=== PATIENT | female | born 1960 | race Caucasian/White ===

== ENCOUNTER 2019-03-02 03:20 | Inpatient (IN) | payer MEDICARE ==
[~2019-03-02] VITALS: Ht 170.2 cm; Wt 51.8 kg
[~2019-03-02 03:20] MED LIST: ALBU90OI INH; ASPI81CH PO; CEPH500 PO; CREON DR 12,001 EACH PO; CYCL10 PO; ERYT.5TO LEFTEYE; FURO20 PO; GABA100; GABA100 PO; HYDACE5 PO; INHALER; K-Dur10 MEQ; LATANOPROST2.5 ML; LATANOPROST2.5 ML OP; LEVSOD100 PO; LEVSOD25 PO; LISI20 PO; LISI5 PO; Lopressor 25 mg25 MG PO; META800 PO; METO25 PO; Naprosyn500 MG PO; Norco 5-325 Ta1 EACH PO; Oxycodone-Apap1 EAC3 PO; PANT40 PO; PROM25 PO; PYRI100 PO; Pantoprazole So40 MG PO; Pepcid40 MG PO; Percocet 5-3251 EACH PO; SACC250C PO; SUCR1 PO; TIOT18 INH; VALACYCLOVIR1000 MG PO
[2019-03-02 04:18] LABS: BASOPHILS ABSOLUTE AUTO 0.11 K/mm3 (0.00-0.23); BASOPHILS PERCENT AUTO 1 % (0-2); EOSINOPHILS ABSOLUTE AUTO 0.25 K/mm3 (0.00-0.68); EOSINOPHILS PERCENT AUTO 3 % (0-6); Hematocrit 32.9 % (33.0-51.0); Hemoglobin 11.2 g/dL (11.5-16.0); IMMATURE GRAN ABSOLUTE AUTO 0.06 K/mm3 (0.00-0.10); IMMATURE GRAN PERCENT AUTO 1 % (0-1); LYMPHOCYTES ABSOLUTE AUTO 1.34 K/mm3 (0.84-5.20); LYMPHOCYTES PERCENT AUTO 16 % (21-46); MONOCYTES ABSOLUTE AUTO 0.87 K/mm3 (0.16-1.47); MONOCYTES PERCENT AUTO 11 % (4-13); Mean Corpuscular HGB 31.9 pg (26.0-34.0); Mean Corpuscular Volume 94 fL (80-100); Mean Platelet Volume 9.7 fL (9.1-12.4); NEUTROPHILS ABSOLUTE AUTO 5.59 K/mm3 (1.96-9.15); NEUTROPHILS PERCENT AUTO 68 % (41-73); Platelet Count 349 K/mm3 (150-400); RDW Coefficient Variation 13.3 % (11.7-14.2); RDW Standard Deviation 46.1 fL (35.1-46.3); Red Blood Cell Count 3.51 M/mm3 (3.80-5.20); White Blood Cell Count 8.22 K/mm3 (4.00-11.30)
[2019-03-02 04:37] LABS: Alanine Aminotransfer (ALT/SGP 76 U/L (12-78); Albumin, Blood 3.6 g/dL (3.4-5.0); Albumin/Globulin Ratio 0.9 (0.8-1.8); Alk Phos 246 U/L (50-136); Anion Gap 10 mmol/L (6-16); Aspartate Aminotrans (AST/SGOT 112 U/L (12-37); Bilirubin, Total 0.7 mg/dL (0.1-1.0); Blood Urea Nitrogen 12 mg/dL (8-24); Bun/Creatinine Ratio 11.8 (12.0-20.0); CO2, Blood 25 mmol/L (21-32); Calcium, Blood 9.5 mg/dL (8.5-10.1); Chloride, Blood 92 mmol/L (98-108); Creatinine, Blood 1.02 mg/dL (0.40-1.00); Ethanol (Alcohol), Blood, Med <3 mg/dL; Globulin, Blood 3.8 g/dL (2.2-4.0); Glomerular Filtration Rate 59 (60-); Glucose, Blood 97 mg/dL (70-99); Sodium, Blood 127 mmol/L (136-145); Total Protein, Blood 7.4 g/dL (6.4-8.2)
--- NOTE | 2019-03-02 06:00 | NUR ---
transfer report from Amira SOLIZ on 58 year old PT being admitted with pancreatitis and she will be NPO. Assess for ETOH withdrawl. PRior hx of pancreatitis, active ETOH use at bedtime reported beer unknown amount. Await admission
[2019-03-02 06:22] LABS: CHOL/HDL RATIO 1.9; Cholesterol 121 mg/dL (50-200); HDL Cholesterol 65 mg/dL (>39); LDL/HDL RATIO 0.7; Low Density Lipoprotein Chol 46 mg/dL (0-110); Triglycerides 48 mg/dL (30-160); Very Low Density Lipoprot Chol 9 mg/dL (6-32)
--- NOTE | 2019-03-02 14:59 | NUR ---
Patient is sitting up in bed and alert. Patient openly talks about her medical history leading up to her current diagnosis. Patient also shares about her family, her struggles with jain based on her father growing up who was a preacher and how she processes emotioanally/mentally the health roller coaster she is on. Patient states that she focuses on what she can do and what she does have, says to herself daily, "I still have some livin' to do" and she prays. I listen empathically, encourage self-care and provide prayer. Patient responds well and shows signs of an elevated mood. Advance care deucation offered. Patient declined.
--- NOTE | 2019-03-02 18:35 | NUR ---
PATIENT A/OX4, UP INDPENDENTLY IN ROOM. VSS, ON RA. FENTANYL GIVEN X1 THIS SHIFT FOR PAIN WITH STATED RELIEF. PATIENT DENIES ANY NAUSEA. NS @100/HR, 20G IV TO L FA WNL AND SL. PATIENT IS A SMOKER AND HAS GONE OUT A FEW TIMES TODAY. SKIN DRY, BUT INTACT. PATIENT IS NPO. CALM AND COOPERATIVE WITH CARE, CALLS APPROPRIATELY FOR ASSISTANCE.
--- NOTE | 2019-03-03 04:11 | NUR ---
58 YEAR OLD FEMALE WITH 2ND hospital stay for acute pancreatitis continues npo with iv fluids running and required iv pain reliever for acute abd pain. denies nausea and denies ETOH withdrawl. States she does not drink ETOH on a regular basis but intermittantly. Pt says she has reocurrance of rt breast cancer tx on past with lumpectomy. had 1 year remission. Continues to smoke x 1 this shift. Smoking and etoh cessation encouraged.
[2019-03-03 05:11] LABS: BASOPHILS ABSOLUTE AUTO 0.13 K/mm3 (0.00-0.23); BASOPHILS PERCENT AUTO 2 % (0-2); EOSINOPHILS PERCENT AUTO 12 % (0-6); Hematocrit 29.3 % (33.0-51.0); Hemoglobin 9.8 g/dL (11.5-16.0); IMMATURE GRAN ABSOLUTE AUTO 0.01 K/mm3 (0.00-0.10); IMMATURE GRAN PERCENT AUTO 0 % (0-1); LYMPHOCYTES ABSOLUTE AUTO 1.75 K/mm3 (0.84-5.20); LYMPHOCYTES PERCENT AUTO 23 % (21-46); MONOCYTES ABSOLUTE AUTO 0.78 K/mm3 (0.16-1.47); MONOCYTES PERCENT AUTO 10 % (4-13); Mean Corpuscular HGB 31.8 pg (26.0-34.0); Mean Corpuscular HGB Conc 33.4 g/dL (31.5-36.5); Mean Corpuscular Volume 95 fL (80-100); Mean Platelet Volume 11.2 fL (9.1-12.4); NEUTROPHILS ABSOLUTE AUTO 4.09 K/mm3 (1.96-9.15); NEUTROPHILS PERCENT AUTO 54 % (41-73); Platelet Count 316 K/mm3 (150-400); RDW Coefficient Variation 13.6 % (11.7-14.2); RDW Standard Deviation 47.3 fL (35.1-46.3); Red Blood Cell Count 3.08 M/mm3 (3.80-5.20); White Blood Cell Count 7.66 K/mm3 (4.00-11.30)
[2019-03-03 05:40] LABS: Alanine Aminotransfer (ALT/SGP 52 U/L (12-78); Albumin, Blood 2.9 g/dL (3.4-5.0); Albumin/Globulin Ratio 0.9 (0.8-1.8); Alk Phos 199 U/L (50-136); Anion Gap 9 mmol/L (6-16); Aspartate Aminotrans (AST/SGOT 49 U/L (12-37); Bilirubin, Total 0.7 mg/dL (0.1-1.0); Blood Urea Nitrogen 10 mg/dL (8-24); Bun/Creatinine Ratio 11.9 (12.0-20.0); CO2, Blood 24 mmol/L (21-32); Calcium, Blood 8.7 mg/dL (8.5-10.1); Chloride, Blood 101 mmol/L (98-108); Creatinine, Blood 0.84 mg/dL (0.40-1.00); Globulin, Blood 3.2 g/dL (2.2-4.0); Glomerular Filtration Rate >60 (60-); Glucose, Blood 63 mg/dL (70-99); Potassium, Blood 3.6 mmol/L (3.5-5.5); Sodium, Blood 134 mmol/L (136-145); Total Protein, Blood 6.1 g/dL (6.4-8.2)
[2019-03-03] MEDS ORDERED: ONDA4ODT (17:05)
[2019-03-03] MEDS ORDERED: ACET325 PO (17:06)
--- NOTE | 2019-03-03 18:40 | NUR ---
DISCHARGE PATIENT DISCHARGED AT ABOUT 1810 TONIGHT, DON'T KNOW EXACT TIME. PATIENT WENT HOME WITH . PATIENT DENIED NAUSEA AND PAIN ALL DAY. DIET SLOWLY ADVANCED FROM CLEAR LIQUIDS TO FULL LIQUIDS THEN PATIENT WAS ABLE TO TOLERATE SANDWICH AND CRACKERS. PT STATES PCP IS DR ABDI AND SHE WILL BE SEEING HIM AT AN APPT MAR 19. HE IS IN THE MIDDLE OF TRANSFERRING TO A NEW CLINIC, BUT WE GOT HER ANOTHER PCP JUST IN CASE. INSTRUCTED TO GO TO URGENT CARE IF NEEDING TO FOLLOW UP IN THE MEAN TIME. DC PACKET GIVEN TO PATIENT, SHE VERBALIZED UNDERSTANDING AND SIGNED DC FORM. IV REMOVED.
== END 2019-03-03 18:48 | disposition home or self-care (01) | DRG 439 ==
LOC: ER 03:20 → MEDS 05:25 → ENPENDDIS 03-03 16:51 → MEDS 03-03 18:48
PROVIDERS: Emergency Medicine; ADMIT Internal Medicine
DX: K85.90 Acute pancreatitis without necrosis or infection, unspecified (principal); E87.1 Hypo-osmolality and hyponatremia; K21.9 Gastro-esophageal reflux disease without esophagitis; J44.9 Chronic obstructive pulmonary disease, unspecified; E03.9 Hypothyroidism, unspecified; F17.210 Nicotine dependence, cigarettes, uncomplicated; Z79.82 Long term (current) use of aspirin; Z79.899 Other long term (current) drug therapy
CPT/HCPCS: 36415; 74160; 76705; 80053; 80061; 83690; 85025; 85027; 94640; 94760; 96361; 96374; 96375; 99284-25; G0480; J1170; J1650; J2405; J3010; J7030; Q9967